=== PATIENT | male | born 1975 | race Caucasian/White ===

== ENCOUNTER 2023-10-21 11:16 | Emergency (ER) | payer SELFPAY ==
[~2023-10-21] VITALS: Ht 154.9 cm; Wt 77.1 kg
[2023-10-21 11:21] VITALS: BP 161/85; PULSE 88; RESP 17; TEMP 97.7; O2SAT 99
[2023-10-21] MEDS ORDERED: cefTRIAXone 1,000 MG VIAL ONE (11:54)
[2023-10-21] MEDS ORDERED: LIDOCAINE MPF 1% 5 ML ONE (11:54)
[2023-10-21] MEDS ORDERED: SULF-59 PO (12:01)
[2023-10-21] MEDS ORDERED: IBUP-2213 PO (12:01)
[2023-10-21] MEDS ORDERED: CEPH-588 PO (12:01)
[2023-10-21] MEDS: cefTRIAXone 1,000 MG in LIDOCAINE MPF 1% 2.1 ML IM ONE (12:09)
== END 2023-10-21 12:21 | disposition home or self-care (01) ==
LOC: MED 11:16
DX: L03.115 Cellulitis of right lower limb (principal)
CPT/HCPCS: 96372; 99283; J0696; J2001